=== PATIENT | male | born 1995 | race Caucasian/White ===

== ENCOUNTER 2019-12-30 17:12 | Emergency (ER) | payer OTHER ==
[2019-12-30] MEDS ORDERED: Cephalexin 500 MG Cap ONE (18:15)
--- NOTE | 2019-12-30 18:31 | EDM.PDOC ---
ED HPI GENERAL MEDICAL PROBLEM - General Stated Complaint: POSSIBLE STREP Time Seen by Provider: 12/30/19 18:15 Source of Information: Reports: Patient History Limitations: Reports: No Limitations - History of Present Illness INITIAL COMMENTS - FREE TEXT/NARRATIVE: This patient presents to the ED for evaluation of a sore throat. He states he started feeling achy and tired yesterday and developed a "very" sore throat earlier today. This afternoon he developed a temp of 100.2. He denies nausea, vomiting, or rash. He denies headache, cough, difficulty breathing, or shortness of breath. Appetite is fair. Onset: Gradual Onset Date: 12/29/19 Duration: Getting Worse Severity: Moderate ED ROS ENT - Review of Systems Review Of Systems: Comprehensive ROS is negative, except as noted in HPI. ED EXAM, ENT - Physical Exam Exam: See Below Exam Limited By: No Limitations General Appearance: Alert, WD/WN, No Apparent Distress Eye Exam: Bilateral Eye: PERRL Ears: Normal External Exam Nose: Normal Inspection, Normal Mucousa Mouth/Throat: Pharyngeal Erythema, Throat Pain, Throat Swelling, Tonsillar Erythema, Tonsillar Exudates, Tonsillar Swelling. No: Trismus, Uvular Deviation , Uvular Edema Head: Atraumatic, Normocephalic Neck: Normal Inspection, Supple, Non-Tender, Full Range of Motion, Lymphadenopathy (R), Lymphadenopathy (L) Respiratory/Chest: No Respiratory Distress, Lungs Clear, Normal Breath Sounds Neurological: Alert, Oriented Skin: Warm, Dry, Intact Course - Orders/Labs/Meds Orders: Active Orders 24 hr Category Date Time Status STREP SCREEN A RAPID [RM] Stat Lab 12/30/19 18:25 Ordered - Re-Assessments/Exams Free Text/Narrative Re-Assessment/Exam: 12/30/19 18:31 This patient presents today with chief complaint of sore throat. The patient is nontoxic. There is no trismus, peritonsillar swelling, drooling, stridor, or evidence of dehydration clinically. Findings are not consistent with peritonsillar abscess, RPA, epiglottitis or Florentino's angina. Rapid strep is positive. Patient treated with Keflex related to PCN allergy. Patient was provided with instructions regarding supportive care and advised to return immediately if @HE@ develops any difficulty breathing, severe throat pain or headache, dehydration, or any other new or worsening symptoms. Departure - Departure Time of Disposition: 18:35 Disposition: Home, Self-Care 01 Condition: Good Clinical Impression: Strep pharyngitis - Discharge Information Instructions: Strep Throat, [id number] Referrals: PCP,None [Primary Care Provider] - Care Plan Goals: Take medications as prescribed. Get prescription filled. Return to hospital or clinic with any questions or concerns. - My Orders Last 24 Hours: My Active Orders 12/30/19 18:25 STREP SCREEN A RAPID [RM] Stat - Assessment/Plan Last 24 Hours: My Active Orders 12/30/19 18:25 STREP SCREEN A RAPID [RM] Stat
== END 2019-12-30 18:30 | disposition home or self-care (01) ==
LOC: LB.ED 17:12
DX: J02.0 Streptococcal pharyngitis (principal)
CPT/HCPCS: 87430; 99283; A9270